=== PATIENT | female | born 1985 | race Caucasian/White ===

== ENCOUNTER 2020-10-10 12:05 | Outpatient (CLI) | payer OTHER, SELFPAY ==
--- NOTE | ~2020-10-10 | US_ITS ---
US breast LT limited DATE: 10/10/2020 12:32 INDICATION: Passed left breast lump; follow-up after removal of benign mass in 12/2010. TECHNIQUE: Targeted ultrasound at area of prior breast lump at 9:00 in region of the COMPARISON: None FINDINGS: No suspicious mass or shadowing is detected in the area of previous breast lump IMPRESSION: BI-RADS Category 1: Negative Recommendation: Routine mammographic screening beginning at age 40 Reviewed, dictated and finalized at [facility]. Reviewed, dictated and finalized at [facility].
== END 2020-10-10 12:06 | disposition home or self-care (01) ==
LOC: ANHIMG 12:12
PROVIDERS: PCP Family Medicine; Visit Provider Nurse Practitioner Obstetrics & Gynecology
DX: N63.20 Unspecified lump in the left breast, unspecified quadrant (principal)
CPT/HCPCS: 76642

== ENCOUNTER 2023-09-30 12:34 | Emergency (ER) | payer OTHER, SELFPAY ==
--- NOTE | ~2023-09-30 | XR_ITS ---
XR chest 2V 09/30/2023 13:14 Indication: Cough. History of smoking. Procedure: 2 view chest Comparison: No prior studies for comparison. Findings: There is right basilar atelectasis/scarring. Heart size normal. Left lung clear. No pleural effusion, edema or pneumothorax. Impression: 1: Right basilar atelectasis/scarring. Reviewed, dictated and finalized at [facility]. Impression: 1: Right basilar atelectasis/scarring.
[2023-09-30 12:50] VITALS: PULSE 79; RESP 20; O2SAT 98
[2023-09-30 12:54] VITALS: BP 155/91; PULSE 79; RESP 20; TEMP 36.9
[2023-09-30 12:57] VITALS: BP 146/84
[2023-09-30 12:59] VITALS: O2SAT 98
[2023-09-30 13:27] LABS: EDINFLUASCREEN Negative; EDINFLUBSCREEN Negative
--- NOTE | 2023-09-30 14:00 | ED.GENADULT ---
HPI - General Adult General Chief complaint: Upper Respiratory Infection Stated complaint: Ears/SOB Source: patient Mode of arrival: ambulatory Limitations: no limitations History of Present Illness HPI narrative: Patient presents for evaluation of respiratory symptoms. She was seen for a cough and an urgent care in 4-6 days ago while she was on vacation. She had a chest x-ray and was told that she had aspiration pneumonia. She had been coughing after attempting to swallow a nut two days prior. She was able to eventually expectorate the nut. She was placed on augmentin, tessalon and an albuterol inhaler. Respiratory symptoms persist. She reports a productive cough, shortness of breath and wheezing. She has a history of asthma in childhood but has not had any problems in many years. She denies fever, chills, nausea or vomiting. She uses marijuana but does not smoke cigarettes. She states she had a negative COVID test when seen at urgent care. Related Data Home Medications Medication Instructions Recorded Confirmed albuterol sulfate 90 mcg/actuation 2 puff inhalation QID prn SOB 09/30/23 09/30/23 aerosol inhaler albuterol sulfate 90 mcg/actuation inhalation 09/30/23 aerosol inhaler amoxicillin 875 mg-potassium tablet 09/30/23 clavulanate 125 mg tablet benzonatate 200 mg capsule mg PO 09/30/23 Allergies Allergy/AdvReac Type Severity Reaction Status Date / Time No Known Allergies Verified 09/30/23 12:41 Review of Systems Review of Systems: CONSTITUTIONAL: Denies fever, chills, or sweats. EYES: Denies visual changes, redness, or discharge. ENT: Denies rhinorrhea, congestion, sore throat, or otalgia. CARDIOVASCULAR: Denies chest pain, palpitations, or edema. RESPIRATORY: reports cough, wheezing, shortness of breath GASTROINTESTINAL: Denies abdominal pain, nausea, vomiting, or diarrhea. GENITOURINARY: Denies dysuria or hematuria. SKIN: Denies rash or itching. MUSCULOSKELETAL: Denies back pain, joint pain, or myalgia. NEUROLOGIC: Denies headache, numbness, dizziness, or weakness. PSYCHIATRIC: Denies anxiety or depression. [facility] Past Medical History Medical History No pertinent past medical history Surgical History Surgical History No pertinent past surgical history Family History Family History Mother Family history non-contributory Social History Social History Substance use: current Substance use type: marijuana Living arrangements: with family Gender identity (if verbalized by the patient): Female Sexual Orientation (if Verbalized by the Patient): Straight or Heterosexual Spiritual care concerns: No Exam Narrative: GENERAL: Well-appearing, well-nourished, and in no acute distress. HEAD: Normocephalic, atraumatic. EYES: PERRLA and EOMI. ENT: Nares clear, no rhinorrhea or epistaxis. Mucous membranes moist. Oropharynx without tonsillar hypertrophy exudate or other lesions. unable to visualize tympanic membrane secondary to cerumen impactions bilateral NECK: Supple. No adenopathy or masses. No carotid bruits or JVD CHEST: cough present on exam. Clear to auscultation. No respiratory distress. No wheezes rales or rhonchi HEART: Regular rate and rhythm. No murmur heard. Normal peripheral pulses. ABDOMEN: Soft, nontender, nondistended, normal active bowel sounds. EXTREMITIES: Normal range of motion. No edema. SKIN: Warm, dry, no rash. NEURO: No focal deficits. Alert and oriented x3. PSYCH: Normal mood and affect. Course Course Emergency Course: this is a 38-year-old female who presented for evaluation of respiratory symptoms. COVID and flu here were negative. Chest x-ray was repeated and showed atelectasis in the right
== END 2023-09-30 14:05 | disposition home or self-care (01) ==
PROVIDERS: Emergency Provider Nurse Practitioner; PCP Family Medicine
DX: H61.23 Impacted cerumen, bilateral (principal); Z87.01 Personal history of pneumonia (recurrent); Z20.822 Contact with and (suspected) exposure to COVID-19; F12.90 Cannabis use, unspecified, uncomplicated
CPT/HCPCS: 69209; 71046; 87426; 87804; 99213; A9270; G0463